=== PATIENT | male | born 1960 ===

== ENCOUNTER 2018-05-11 15:22 | Emergency (ER) | payer BC ==
[2018-05-11 15:23] VITALS: BMI 22.7
[2018-05-11 16:02] VITALS: RESP 18; O2SAT 99
[2018-05-11] MEDS ORDERED: Sodium Chloride 0.9% 1,000 ML IV SCH (17:00)
[2018-05-11] MEDS ORDERED: Sodium Chloride 0.9% 1,000 ML ONE (17:28)
[2018-05-11 17:59] LABS: BASO % 0.3 % (0.0-2.0); EOS % 0.3 % (0.0-4.0); HEMOGLOBIN 13.7 g/dL (12.0-18.0); LYMPH # 1.3 K/uL (1.0-4.3); LYMPH % 10.8 % (20.0-40.0); MEAN CORPUSCULAR HEMOGLOBIN 28.3 pg (27.0-31.0); MEAN PLATELET VOLUME 9.1 fL (7.2-11.7); MONO # 0.9 K/uL (0.0-0.8); MONO % 7.9 % (0.0-10.0); NEUT # 9.4 K/uL (1.8-7.0); NEUT % 80.7 % (50.0-75.0); NRBC % 0.1 % (0.0-2.0); RBC 4.84 Mil/uL (4.40-5.90); RED CELL DISTRIBUTION WIDTH 13.7 % (11.5-14.5); WHITE BLOOD COUNT 11.7 K/uL (4.8-10.8)
[2018-05-11 18:13] LABS: ALB/GLOB RATIO 1.4 (1.0-2.1); ALBUMIN 4.3 g/dL (3.5-5.0); ALT/SGPT 26 U/L (21-72); AST/SGOT 37 U/L (17-59); BLOOD UREA NITROGEN 15 mg/dL (9-20); CALCIUM 8.8 mg/dl (8.6-10.4); GFR NON-AFRICAN AMERICAN > 60
--- NOTE | 2018-05-11 18:22 | C.PDOC ---
History Of Present Illness 57 y/o male comes in to ED complaining of dizziness x1 day. Patient has history of vertigo. States he ran out of meclizine. Patient was seen here for similar complaint. Denies fever, chest pain, or SOB. Chief Complaint (Nursing): Dizziness/Lightheaded History Per: Patient History/Exam Limitations: no limitations Onset/Duration Of Symptoms: Days Current Symptoms Are (Timing): Still Present Past Medical History Reviewed: Historical Data, Nursing Documentation, Vital Signs Vital Signs: Last Vital Signs Temp 98.2 F 05/11/18 16:00 Pulse 58 L 05/11/18 16:00 Resp 18 05/11/18 16:00 BP 132/82 05/11/18 16:00 Pulse Ox 99 05/11/18 16:00 Family History: States: No Known Family Hx - Social History Hx Alcohol Use: Yes Hx Substance Use: No - Immunization History Hx Tetanus Toxoid Vaccination: No Hx Influenza Vaccination: No Hx Pneumococcal Vaccination: No Review Of Systems Except As Marked, All Systems Reviewed And Found Negative. Constitutional: Negative for: Fever, Chills Cardiovascular: Negative for: Chest Pain Respiratory: Negative for: Shortness of Breath Gastrointestinal: Negative for: Nausea, Vomiting Musculoskeletal: Negative for: Neck Pain Neurological: Positive for: Dizziness. Negative for: Headache Physical Exam - Physical Exam Appears: Non-toxic, No Acute Distress Skin: Warm, Dry Head: Atraumatic, Normacephalic Eye(s): bilateral: Normal Inspection (no nystagmus) Oral Mucosa: Moist Neck: Supple Cardiovascular: Rhythm Regular, No Murmur Respiratory: Normal Breath Sounds, No Rales, No Rhonchi, No Wheezing Gastrointestinal/Abdominal: Soft, No Tenderness Extremity: Bilateral: Atraumatic, Normal Color And Temperature, Normal ROM Neurological/Psych: Oriented x3, Normal Speech, Normal Cognition ED Course And Treatment - Laboratory Results Result Diagrams: 05/11/18 17:46 05/11/18 17:46 Lab Results: Total Bilirubin 0.7 mg/dL (0.2-1.3) 05/11/18 17:46 AST 37 U/L (17-59) 05/11/18 17:46 ALT 26 U/L (21-72) 05/11/18 17:46 Alkaline Phosphatase 92 U/L (38-126) 05/11/18 17:46 Total Protein 7.5 g/dL (6.3-8.3) 05/11/18 17:46 Albumin 4.3 g/dL (3.5-5.0) 05/11/18 17:46 Globulin 3.2 gm/dL (2.2-3.9) 05/11/18 17:46 Albumin/Globulin Ratio 1.4 (1.0-2.1) 05/11/18 17:46 ECG: Interpreted By Me, Viewed By Me ECG Rhythm: Sinus Rhythm Rate From EC O2 Sat by Pulse Oximetry: 99 (RA) Pulse Ox Interpretation: Normal Medical Decision Making Medical Decision Making: Plan: --EKG --Labs --Meclizine --IV fluids --Zofran 6:30pm: Patient feeling better. Pt. to be discharged with follow up instructions. Disposition - Disposition Referrals: [facility] [Outside] [facility] [Outside] Disposition: HOME/ ROUTINE Disposition Time: 18:30 Condition: IMPROVED Additional Instructions: LOLLY MOBLEY, thank you for letting us take care of you today. The emergency medical care you received today was directed at your acute symptoms. If you were prescribed any medication, please fill it and take as directed. It may take several days for your symptoms to resolve. Return to the Emergency Department if your symptoms worsen, do not improve, or if you have any other problems. Please contact your doctor or call one of the physicians/clinics you have been referred to that are listed on the Patient Visit Information form that is incl uded in your discharge packet. Bring any paperwork you were given at discharge with you along with any medications you are taking to your follow up visit. Our treatment cannot replace ongoing medical care by a primary care provider outside of the emergency department. Thank you for allowing the [facility] team to be part of your care today. Follow up with the clinic in 3-5 days for re-evaluation and further management. Prescriptions: Meclizine [Meclizine*] 25 mg PO Q6 PRN #20 tab PRN Reason: Dizziness Instructions: Vertigo (a Type of Dizziness) (DC) Forms: [address] ([place]) - Clinical Impression Clinical Impression: Dizziness - Scribe Statement The provider has reviewed the documentation as recorded by the Singh Millan Provider Attestation: All medical record entries made by the Scribe were at my direction and personally dictated by me. I have reviewed the chart and agree that the record accurately reflects my personal performance of the history, physical exam, medical decision making, and the department course for this patient. I have also personally directed, reviewed, and agree with the discharge instructions and disposition.
[2018-05-11 18:56] VITALS: BP 140/84; PULSE 77; TEMP 98.7
== END 2018-05-11 19:03 | disposition home or self-care (01) ==
LOC: C.ER 15:22
DX: R42 Dizziness and giddiness (principal)
CPT/HCPCS: 80053; 82948; 84484; 85025; 93005; 96374; 99285; J2405; J7030